=== PATIENT | female | born 1965 | race Caucasian/White ===

== ENCOUNTER 2018-01-04 14:40 | Emergency (ER) | payer OTHER ==
[~2018-01-04] VITALS: Ht 175.3 cm; Wt 66.0 kg
[~2018-01-04 14:40] MED LIST: ADVINUNK; ALLGUNK; FLVHFAUNK
[2018-01-04 14:50] VITALS: TEMP 36.7; Ht 175.3 cm; Wt 66.0 kg
[2018-01-04] MEDS ORDERED: SODIUM CHLORIDE 0.9% 1000ML 1,000 ML IV STA (15:19)
--- NOTE | 2018-01-04 15:55 | EMERGENCY ROOM VISIT NOTE ---
History Report prepared by Mike: Olivia Sierra Under the Supervision of: Dr. Vin Grimes M.D. First contact with patient: 15:14 Chief Complaint: HYPERTENSION Stated Complaint: INCREASED BP, OFF BALANCE SEATED R 144/94 History of Present Illness The patient is a 52 year old female who presents to the Emergency Room with complaints of an episode of hypertension starting 2 hours ago. The patient states that she has a history of hypertension since spring and takes Lisinopril for it. The patient states that she was at work today and felt like when she was walking she was teetering from one side to the other. She states that she sat down, but the feeling did not go away. She reports that her head also felt funny. She states that she decided to take her blood pressure and it was 169/111. She states that she did not feel safe driving home and felt the need to come in to the ED to make sure everything is okay. The patient complains of intermittent nausea. She notes that she has not been eating and drinking properly recently because her mother has been ill. The patient denies headache, lightheadedness, fever, chills, cough, congestion, vomiting, chest pain, shortness of breath, abdominal pain, urinary symptoms, falling, and difficulty walking. She notes that they think her hypertension came from stress because it came shortly after the of her . She notes in the past when her blood pressure is high she gets a headache and pain in her teeth. The patient notes that she has an IUD placed. Source of History: patient Onset: 2 hours ago Position: other (global) Quality: other (hypertension) Timing: other (episode) Associated Symptoms: + nausea, No fevers, No chills, No headache, No cough, No chest pain, No SOB, No vomiting, No abdominal pain, No urinary symptoms Note: The patient complains of feeling like she is teetering from side to side and her head feeling funny. The patient denies lightheadedness, congestion, and difficulty walking. Review of Systems See HPI for pertinent positives and negatives. A total of ten systems were reviewed and were otherwise negative. Past Medical & Surgical Medical Problems: (1) Asthma (2) HTN (hypertension) (3) IBS (irritable bowel syndrome) (4) Raynaud's disease Social History Problems: (1) IUD (intrauterine device) in place Family History Heart disease Stroke Social History Smoking Status: Never Smoker Smokeless Tobacco Use: No Alcohol Use: occasionally Drug Use: none Marital Status: Housing Status: lives with family Occupation Status: employed Current/Historical Medications Scheduled Lisinopril (Zestril), 10 MG PO DAILY Paroxetine Hcl (Paroxetine Hcl), 5 MG PO DAILY Scheduled PRN Albuterol Sulfate (Proair Respiclick), 2 PUFFS INH Q4H PRN for Cough/Wheeze/ Chest Tightness Lorazepam (Ativan), 0.5 MG PO Q8 PRN for Anxiety Allergies Coded Allergies: No Known Allergies (Unverified , none, 01/28/12) Physical Exam Vital Signs Date Time Temp Pulse Resp B/P (MAP) Pulse Ox O2 Delivery O2 Flow Rate FiO2 01/04/18 17:40 58 18 133/90 96 Room Air 01/04/18 16:47 55 01/04/18 16:20 63 18 152/99 99 Room Air 01/04/18 14:50 36.7 78 18 169/117 98 Room Air Physical Exam GENERAL: Awake, alert, anxious-appearing, in no distress HENT: Normocephalic, atraumatic. Dry mucus membranes. EYES: Normal conjunctiva. Sclera non-icteric. NECK: Supple. No nuchal rigidity. FROM. No JVD. RESPIRATORY: Clear to auscultation. CARDIAC: Regular rate, normal rhythm. Extremities warm and well perfused. Pulses equal. ABDOMEN: Soft, non-distended. No tenderness to palpation. No rebound or guarding. No masses. RECTAL: Deferred. MUSCULOSKELETAL: Chest examination reveals no tenderness. The back is symmetrical on inspection without obvious abnormality. There is no CVA tenderness to palpation. No joint edema. LOWER EXTREMITIES: Calves are equal size bilaterally and non-tender. No edema. No discoloration. NEURO: Normal sensorium. No sensory or motor deficits noted. normal cerebellar function with [id number], alternating palms, [id number]. SKIN: No rash or jaundice noted. Medical Decision & Procedures ER Provider Diagnostic Interpretation: Radiology results as stated below per my review and radiologist interpretation: CHEST ONE VIEW PORTABLE CLINICAL HISTORY: ABDOMINAL PAIN/GI pain COMPARISON STUDY: 01/04/2018 FINDINGS: The bones soft tissues and hemidiaphragms are normal. The cardiomediastinal silhouette is normal. The lungs are clear. The pulmonary vasculature is normal. IMPRESSION: Negative chest. The above report was generated using voice recognition software. It may contain grammatical, syntax or spelling errors. Electronically signed by: Jarvis Tony M.D. 01/04/2018 4:16 PM Dictated Date/Time: 01/04/2018 4:16 PM Laboratory Results 01/04/18 15:45 Red Blood Count 4.64, Mean Corpuscular Volume 88.4, Mean Corpuscular Hemoglobin 31.3, Mean Corpuscular Hemoglobin Concent 35.4, Mean Platelet Volume 9.4, Neutrophils (%) (Auto) 53.5, Lymphocytes (%) (Auto) 39.1, Monocytes (%) (Auto) 5.6, Eosinophils (%) (Auto) 1.3, Basophils (%) (Auto) 0.5, Neutrophils # (Auto) 2.95, Lymphocytes # (Auto) 2.16, Monocytes # (Auto) 0.31, Eosinophils # (Auto) 0.07, Basophils # (Auto) 0.03 01/04/18 15:45 Test 01/04/18 15:45 White Blood Count 5.52 K/uL (4.8-10.8) Red Blood Count 4.64 M/uL (4.2-5.4) Hemoglobin 14.5 g/dL (12.0-16.0) Hematocrit 41.0 % (37-47) Mean Corpuscular Volume 88.4 fL (80-100) Mean Corpuscular Hemoglobin 31.3 pg (25-34) Mean Corpuscular Hemoglobin Concent 35.4 g/dl (32-36) Platelet Count 220 K/uL (130-400) Mean Platelet Volume 9.4 fL (7.4-10.4) Neutrophils (%) (Auto) 53.5 % Lymphocytes (%) (Auto) 39.1 % Monocytes (%) (Auto) 5.6 % Eosinophils (%) (Auto) 1.3 % Basophils (%) (Auto) 0.5 % Neutrophils # (Auto) 2.95 K/uL (1.4-6.5) Lymphocytes # (Auto) 2.16 K/uL (1.2-3.4) Monocytes # (Auto) 0.31 K/uL (0.11-0.59) Eosinophils # (Auto) 0.07 K/uL (0-0.5) Basophils # (Auto) 0.03 K/uL (0-0.2) RDW Standard Deviation 38.1 fL (36.4-46.3) RDW Coefficient of Variation 11.9 % (11.5-14.5) Immature Granulocyte % (Auto) 0.0 % Immature Granulocyte # (Auto) 0.00 K/uL (0.00-0.02) Urine Color YELLOW Urine Appearance CLEAR (CLEAR) Urine pH 7.5 (4.5-7.5) Urine Specific [place] 1.009 (1.000-1.030) Urine Protein NEG (NEG) Urine Glucose (UA) NEG (NEG) Urine Ketones NEG (NEG) Urine Occult Blood TRACE (NEG) Urine Nitrite NEG (NEG) Urine Bilirubin NEG (NEG) Urine Urobilinogen NEG (NEG) Urine Leukocyte Esterase NEG (NEG) Urine WBC (Auto) 0 /hpf (0-5) Urine RBC (Auto) 0-4 /hpf (0-4) Urine Hyaline Casts (Auto) 0 /lpf (0-5) Urine Epithelial Cells (Auto) 0-5 /lpf (0-5) Urine Bacteria (Auto) NEG (NEG) Anion Gap 5.0 mmol/L (3-11) Est Creatinine Clear Calc Drug Dose 68.1 ml/min Estimated GFR () 73.4 Estimated GFR (Non- 63.3 BUN/Creatinine Ratio 12.8 (10-20) Calcium Level 9.3 mg/dl (8.5-10.1) Phosphorus Level 2.8 mg/dl (2.5-4.9) Magnesium Level 2.2 mg/dl (1.8-2.4) Total Bilirubin 0.6 mg/dl (0.2-1) Direct Bilirubin 0.2 mg/dl (0-0.2) Aspartate Amino Transf (AST/SGOT) 15 U/L (15-37) Alanine Aminotransferase (ALT/SGPT) 23 U/L (12-78) Alkaline Phosphatase 56 U/L (45-117) Troponin I < 0.015 ng/ml (0-0.045) Total Protein 8.1 gm/dl (6.4-8.2) Albumin 4.5 gm/dl (3.4-5.0) Lipase 98 U/L (73-393) Laboratory results reviewed by me Medications Administered Medications (Trade) Dose Ordered Sig/Landy Route Start Time Stop Time Status Last Admin Dose Admin Sodium Chloride 1,000 ml @ 999 mls/hr Q1H1M STAT IV 01/04/18 15:19 01/04/18 16:19 DC 01/04/18 15:19 999 MLS/HR ECG Per My Interpretation Indication: nausea Rate (beats per minute): 59 Rhythm: sinus bradycardia Findings: no acute ischemic change, other (normal axis) ED Course 1518: The patient was evaluated in room B11B. A complete history and physical exam was performed. 1650: I reevaluated the patient and she feels better. Discussed results and discharge instructions: She verbalized understanding and agreement. The patient is ready for discharge. Medical Decision I reviewed the patient's past medical history, medications, and the nursing notes as described above. Differential diagnosis: Etiologies such as benign hypertension, hypertensive emergency, cardiovascular pathology, pheochromocytoma, electrolyte abnormality, renal disease, end organ damage, as well as others were entertained. The patient is a 52 y/o woman with a pmhx of HTN who presents to the emergency department with lightheadedness and high blood pressure per HPI. On arrival, the patient is in NAD, AF with BP 160s/110s but otherwise VSS. Neuro intact including normal cerebellar function with [id number], alternating palms, [id number]. EKG unremarkable. Labs unremarkable including WBC, H/H, Cr wnl. UA negative. Patient feeing improved after IVF hydration with BP improved from 160/110s to 130s/90s. Sx most likely 2/2 mild dehydration. Thus, no indication for brain imaging at this time. Plan for pcp f/u. Findings and plan for follow- up reviewed with patient. Patient agreeable and d/c'd per discharge instructions. Medication Reconcilliation Current Medication List: was personally reviewed by me Blood Pressure Screening Patient's blood pressure: Elevated blood pressure Blood pressure disposition: Referred to PCP Impression Primary Impression: Lightheadedness Additional Impression: Dehydration Scribe Attestation The scribe's documentation has been prepared under my direction and personally reviewed by me in its entirety. I confirm that the note above accurately reflects all work, treatment, procedures, and medical decision making performed by me. Departure Information Dispostion Home / Self-Care Referrals Romy Del Cid D.O. (PCP) Forms HOME CARE DOCUMENTATION FORM, IMPORTANT VISIT INFORMATION, WORK / SCHOOL INSTRUCTIONS Patient Instructions Dizziness Fainting Poss Causes, ED Dehydration, High Blood Pressure, My [facility] Additional Instructions Please follow up with your primary care physician in the next 1-3 days for re- evaluation. Your symptoms are likely due to mild dehydration. Otherwise, your exam, EKG, chest xray, and lab results did not show signs of an emergent condition at this time. Drink plenty of fluids to ensure hydration. Return to the emergency department for worsening symptoms as described in the accompanying instructions. Problem Qualifiers
[2018-01-04] MEDS ORDERED: LISI-461 PO (15:58)
[2018-01-04] MEDS ORDERED: PARO10TA4 PO (15:58)
[2018-01-04] MEDS ORDERED: ALBU18002 INH (15:58)
[2018-01-04] MEDS ORDERED: LORA-741 PO (15:58)
[2018-01-04 16:02] LABS: BASO % 0.5 %; BASO ABS # 0.03 K/uL (0-0.2); EOS % 1.3 %; EOS ABS # 0.07 K/uL (0-0.5); HEMOGLOBIN 14.5 g/dL (12.0-16.0); LYMPH % 39.1 %; LYMPH ABS # 2.16 K/uL (1.2-3.4); MEAN CELL VOLUME 88.4 fL (80-100); MEAN CORPUSCULAR HEMOGLOBIN 31.3 pg (25-34); MEAN CORPUSCULAR HGB CONC 35.4 g/dl (32-36); MEAN PLATELET VOLUME 9.4 fL (7.4-10.4); MONO % 5.6 %; MONO ABS # 0.31 K/uL (0.11-0.59); NEUT % 53.5 %; NEUT ABS # 2.95 K/uL (1.4-6.5); PLATELET COUNT 220 K/uL (130-400); RED CELL DISTRIBUTION WIDTH CV 11.9 % (11.5-14.5); RED CELL DISTRIBUTION WIDTH SD 38.1 fL (36.4-46.3); WHITE BLOOD COUNT 5.52 K/uL (4.8-10.8)
--- NOTE | 2018-01-04 16:18 | DIAGNOSTIC IMAGING REPORT ---
CHEST ONE VIEW PORTABLE CLINICAL HISTORY: ABDOMINAL PAIN/GI pain COMPARISON STUDY: 01/04/2018 FINDINGS: The bones soft tissues and hemidiaphragms are normal. The cardiomediastinal silhouette is normal. The lungs are clear. The pulmonary vasculature is normal. IMPRESSION: Negative chest. The above report was generated using voice recognition software. It may contain grammatical, syntax or spelling errors. Electronically signed by: Jarvis Tony M.D. 01/04/2018 4:16 PM Dictated Date/Time: 01/04/2018 4:16 PM
[2018-01-04 16:20] LABS: ALBUMIN 4.5 gm/dl (3.4-5.0); ALT/SGPT 23 U/L (12-78); AST/SGOT 15 U/L (15-37); BLOOD UREA NITROGEN 13 mg/dl (7-18); CALCIUM 9.3 mg/dl (8.5-10.1); CARBON DIOXIDE 29 mmol/L (21-32); CREATININE 1.03 mg/dl (0.60-1.20); GLUCOSE 90 mg/dl (70-99); LIPASE 98 U/L (73-393); POTASSIUM 3.4 mmol/L (3.5-5.1); SODIUM 138 mmol/L (136-145)
[2018-01-04 16:23] LABS: ALKALINE PHOSPHATASE 56 U/L (45-117); PHOSPHORUS 2.8 mg/dl (2.5-4.9); TOTAL PROTEIN 8.1 gm/dl (6.4-8.2)
[2018-01-04 17:40] VITALS: BP 133/90; PULSE 58; O2SAT 96
== END 2018-01-04 17:55 | disposition home or self-care (01) ==
LOC: C.EDB 14:42
DX: I10 Essential (primary) hypertension (principal); E86.0 Dehydration; Z79.899 Other long term (current) drug therapy; Z97.5 Presence of (intrauterine) contraceptive device; J45.909 Unspecified asthma, uncomplicated; K58.9 Irritable bowel syndrome, unspecified; I73.00 Raynaud's syndrome without gangrene; Z82.0 Family history of epilepsy and other diseases of the nervous system